=== PATIENT | female | born 1980 | race Caucasian/White ===

== ENCOUNTER 2017-03-19 09:08 | Outpatient (CLI) | payer BC, OTHER ==
--- NOTE | 2017-03-19 16:55 | CT ---
CT CHEST WITH IV CONTRAST CT ABDOMEN AND PELVIS WITH IV CONTRAST 03/19/17 HISTORY: Malignant neoplasm sigmoid colon. Followup colon cancer. Patient is post chemotherapy and immunothera py. COMPARISON: 12/26/16. CT THORAX: There is a right internal jugular vein Mediport catheter again noted in place. There are a few tiny pleural based less than 4 mm pulmonary nodules in the right upper lobe. There terrazas s been interval development of pulmonary nodules seen throughout the lungs bilaterally. Largest pulm onary nodule at the left lung base measures 17 mm with largest pulmonary nodule on the right also pre sent at the right lung base and measures 1.2 cm. There is evidence of a small left pleural effusion. There are a few very tiny subpleural nodules seen within the lungs bilaterally, some of which were present on the prior exam. There is a very tiny right pleural effusion. No mediastinal, hilar or axillary lymphadenopathy is present. no lytic or sclerotic osseous lesions a re seen. CT ABDOMEN AND PELVIS: Hypodense masses are again seen throughout each lobe of the liver with large irregular hypodense mass -like infiltrating lesions present within each lobe of the liver. The measured masses on the prior st udy are overall stable in size. Increase density focus/enhancement within the lateral aspect of the r ight hepatic lobe is again seen and stable from prior exam. This area demonstrated increased density on a prior noncontrasted study on 12/26/15 and may be related to calcification in this region. There is a stable subcentimeter too small to characterize hypodense lesion lateral aspect left kidney. There is a small subcentimeter hypodense lesion again seen within the lateral aspect body of the spleen whi ch is difficult to further characterize. The pancreas, bilateral adrenal glands, right kidney, abdominal aorta, urinary bladder, and uterus de monstrate a normal CT appearance. The opacified bowel is normal in appearance. There is evidence of aortocaval lymphadenopathy. The largest lymph node seen in an aortocaval locatio n in the midline measures 1 cm in short axis dimension. These lymph nodes were also present on the pr ior exam. There is a small amount of free fluid in the pelvis. Minimal nonspecific further stranding is seen in the inferior aspect of the right paracolic gutter. Focal area of wall thickening in the sigmoid colon. This may be related to patient's known colonic ne oplasm. However, if there has been resection of patient's colonic neoplasm, this could potentially be related to focal area of recurrence. Osseous structures demonstrate no lytic or sclerotic osseous lesions. IMPRESSION: 1. Interval worsening of metastatic disease with interval development of multiple bilateral pulm onary nodules. 2. Hepatic metastatic lesions with multiple infiltrating hypodense masses seen throughout each l obe of the liver. These masses are overall similar to the prior exam. A few of the smaller hypodense masses are slightly larger in size. Liver remains enlarged measuring 23 cm in craniocaudal dimensions . 3. Aortocaval lymphadenopathy with increased number of lymph nodes and lymph nodes which are mil dly prominent. 4. Focal wall thickening in the sigmoid colon which may represent patient's known colonic neopla sm. If the patient has had resection of the colonic neoplasm, this could potentially represent recurr ence or new focal area of malignancy. However, this would be better evaluated on colonoscopy. 5. Small amount of free fluid in the pelvis with small left and tiny right pleural effusions. POS: [facility]
== END 2017-03-19 09:09 | disposition home or self-care (01) ==
LOC: SCSCT 09:08
PROVIDERS: ATTEND Internal Medicine Hematology & Oncology
DX: C18.7 Malignant neoplasm of sigmoid colon (principal); R11.2 Nausea with vomiting, unspecified; C22.7 Other specified carcinomas of liver; R59.0 Localized enlarged lymph nodes; J90 Pleural effusion, not elsewhere classified
CPT/HCPCS: 71260; 74177

== ENCOUNTER 2017-05-20 11:19 | Outpatient (CLI) | payer BC, OTHER ==
[2017-05-20] MEDS ORDERED: Iopamidol 370 76% 100 ML VIAL ONE (12:20)
--- NOTE | 2017-05-20 14:48 | CT ---
CT OF THE CHEST WITH CONTRAST CT OF THE ABDOMEN AND PELVIS WITH COTNRAST: HISTORY: Lung cancer with metastatic disease of the liver, lungs, and spleen. TECHNIQUE: 1. Multiple contiguous axial images were obtained in a CT of the chest with contrast. Coronal refor mats were performed. 2. Multiple contiguous axial images were obtained in a CT of the abdomen and pelvis with contrast. Coronal reformats were performed. FINDINGS: CT CHEST: There are innumerable cannonball metastases to the liver which are well circumscribed. These measure up to 1.7 cm in size. These have increased in size and number compared to the prior examination. T here is a small left pleural effusion. No right pleural effusion is seen. The heart is normal in size. No hilar or mediastinal lymphadenopathy are seen. There is a MediPort with its tip in the superior vena cava. The bones of the thorax are unremarkable . CT ABDOMEN/PELVIS: There are too numerous to count metastatic lesions scattered throughout the liver. When compared to the prior examination, these lesions have increased in size and number. There is a small amount of a scites scattered throughout the abdomen and pelvis which is new compared to the prior examination. T here is a tiny hypodensity in the lateral aspect of the spleen which is unchanged compared to the niki or examination. The large and small bowel are unremarkable. The reproductive organs are unremarkable. There is a st able area of wall thickening of the sigmoid colon. This may represent the patient's known malignancy . The gallbladder, kidneys, adrenal glands, and pancreas are unremarkable. No enlarged pelvic lymph no mamadou are seen. There are mildly enlarged lymph nodes in the upper retroperitoneum measuring up to 1.5 cm in size. The abdominal wall soft tissues are unremarkable. The bones of the pelvis and lumbar spine are unrem arkable. IMPRESSION: 1. Worsening of pulmonary metastatic disease. 2. New left pleural effusion with adjacent atelectasis. 3. Worsening of hepatic metastatic disease. 4. Interval development of a small amount of ascites. 5. Wall thickening in the region of the sigmoid colon may represent the patient's known malignancy. 6. Enlarged retroperitoneal lymph nodes. POS: [facility]
== END 2017-05-20 11:20 | disposition home or self-care (01) ==
LOC: CT 11:19
PROVIDERS: ATTEND Internal Medicine Hematology & Oncology
DX: C78.00 Secondary malignant neoplasm of unspecified lung (principal); C78.7 Secondary malignant neoplasm of liver and intrahepatic bile duct; C18.7 Malignant neoplasm of sigmoid colon; J98.11 Atelectasis; J90 Pleural effusion, not elsewhere classified; R59.0 Localized enlarged lymph nodes; R18.8 Other ascites
CPT/HCPCS: 71260; 74177